=== PATIENT | female | born 1960 | race Caucasian/White ===

== ENCOUNTER → 2020-03-30 | Outpatient (CLI) | payer SELFPAY ==
[~2020-03-30] MED LIST: AMOXICILLIN125 MG; AUGMENTIN 875875 MG PO; DELTASONE20 MG PO; PREDNISONE20 MG PO; PRILOSEC OTC20 MG PO; SYMBICORT1 AE1 INH; VENTOLIN0.09 MG/AC INH; VITAMIN D5000 IU PO; VITAMIN D50000 I3 PO; ZITHROMAX Z PA250 MG PO
[2020-03-30 18:11] LABS: HEMATOCRIT 42.3 % (37.0-47.0); MEAN CELL VOLUME 85.8 fl (81.0-99.0); MEAN CORPUSCULAR HGB 29.6 pg (27.0-31.0); MEAN CORPUSCULAR HGB CONC 34.5 g/dl (33.0-37.0); RED BLOOD COUNT 4.93 10*6/uL (4.10-5.10); RED CELL DISTRI WIDTH 13.5 % (0-14.5); WHITE BLOOD COUNT 8.5 10*3/uL (4.8-10.8)
[2020-03-30 18:30] LABS: ALBUMIN 3.4 gm/dl (3.1-4.5); CREATININE 1.33 mg/dL (0.55-1.02); POTASSIUM 2.9 mmol/L (3.5-5.1); TOTAL PROTEIN 7.9 gm/dL (6.4-8.2)
[2020-03-30 18:37] LABS: THYROID STIM HORMONE (HS) 3.08 uIU/ml (0.358-4.75)
== END | disposition home or self-care (01) ==
LOC: LAB 17:46
PROVIDERS: Family Medicine
DX: I10 Essential (primary) hypertension (principal); R53.83 Other fatigue; R51 Headache; R77.9 Abnormality of plasma protein, unspecified

== ENCOUNTER → 2020-04-02 | Outpatient (CLI) | payer SELFPAY ==
[2020-04-02 15:14] LABS: URINE CHLORIDE, RANDOM < 10 mmol/L
== END | disposition home or self-care (01) ==
LOC: LAB 14:28
PROVIDERS: Family Medicine
DX: N18.2 Chronic kidney disease, stage 2 (mild) (principal); E87.1 Hypo-osmolality and hyponatremia; R80.9 Proteinuria, unspecified; E87.6 Hypokalemia

== ENCOUNTER → 2020-04-05 | Outpatient (CLI) | payer SELFPAY | END | disposition home or self-care (01) | LOC: LAB 08:43 | DX: R80.9 Proteinuria, unspecified (principal) ==

== ENCOUNTER → 2020-04-29 | Outpatient (CLI) | payer SELFPAY | END | disposition home or self-care (01) | LOC: LAB 07:40 | PROVIDERS: ATTEND Ophthalmology Retina Specialist | DX: H35.63 Retinal hemorrhage, bilateral (principal) ==

== ENCOUNTER → 2020-05-07 | Outpatient (CLI) | payer SELFPAY ==
[~2020-05-07] MED LIST changes: +ALDACTONE100 MG PO; +COREG12.5 M1 PO; +KEFLEX500 M1 PO; +POTASSIUM CHLO20 ME3 PO; +ZOFRAN4 MG PO
[2020-05-07 19:45] LABS: BASO # 0.1 10*3/uL (0.0-0.1); BASO % 0.6 % (0.0-1.0); EOS # 0.1 10*3/uL (0.0-0.4); EOS % 1.2 % (1.0-4.0); HEMATOCRIT 44.2 % (37.0-47.0); LYMPH # 1.7 10*3/uL (1.3-4.4); LYMPH % 15.8 % (27.0-41.0); MEAN CELL VOLUME 87.4 fl (81.0-99.0); MEAN CORPUSCULAR HGB 29.6 pg (27.0-31.0); MEAN CORPUSCULAR HGB CONC 33.9 g/dl (33.0-37.0); MEAN PLATELET VOLUME 9.2 fl (9.6-12.3); MONO # 0.8 10*3/uL (0.1-1.0); NEUT # 8.2 10*3/uL (2.3-7.9); NEUT % 74.7 % (47.0-73.0); PLATELET COUNT AUTOMATED 355 10*3/uL (130-400); RED BLOOD COUNT 5.06 10*6/uL (4.10-5.10); WHITE BLOOD COUNT 10.9 10*3/uL (4.8-10.8)
[2020-05-07 20:24] LABS: ALBUMIN 3.9 gm/dl (3.1-4.5); ALKALINE PHOSPHATASE 138 U/L (45-117); BUN 17 mg/dl (7-24); CHLORIDE 92 mmol/L (98-107); CREATININE 1.59 mg/dL (0.55-1.02); LIPASE 508 U/L (73-393); POTASSIUM 4.7 mmol/L (3.5-5.1); SGOT/AST 10 IU/L (3-35); SGPT/ALT 14 U/L (12-78); SODIUM 122 mmol/L (136-145); TOTAL PROTEIN 8.5 gm/dL (6.4-8.2)
== END | disposition home or self-care (01) ==
LOC: LAB 19:24
PROVIDERS: ATTEND Nurse Practitioner Family
DX: R10.9 Unspecified abdominal pain (principal); R11.0 Nausea; R63.4 Abnormal weight loss

== ENCOUNTER 2020-05-08 09:13 | Inpatient (IN) | payer SELFPAY ==
[~2020-05-08] VITALS: Ht 165.1 cm; Wt 57.7 kg
[~2020-05-08 09:13] MED LIST changes: -ALDACTONE100 MG PO; -COREG12.5 M1 PO; -KEFLEX500 M1 PO; -POTASSIUM CHLO20 ME3 PO; -ZOFRAN4 MG PO
[2020-05-08 09:18] VITALS: BP 158/58
[2020-05-08 09:40] LABS: BASO # 0.1 10*3/uL (0.0-0.1); BASO % 0.5 % (0.0-1.0); EOS # 0.1 10*3/uL (0.0-0.4); EOS % 1.2 % (1.0-4.0); HEMATOCRIT 44.1 % (37.0-47.0); LYMPH # 1.5 10*3/uL (1.3-4.4); LYMPH % 15.4 % (27.0-41.0); MEAN CELL VOLUME 87.3 fl (81.0-99.0); MEAN CORPUSCULAR HGB 29.7 pg (27.0-31.0); MEAN PLATELET VOLUME 9.3 fl (9.6-12.3); MONO # 0.6 10*3/uL (0.1-1.0); MONO % 6.3 % (3.0-9.0); NEUT # 7.4 10*3/uL (2.3-7.9); NEUT % 76.1 % (47.0-73.0); PLATELET COUNT AUTOMATED 359 10*3/uL (130-400); RED BLOOD COUNT 5.05 10*6/uL (4.10-5.10); WHITE BLOOD COUNT 9.7 10*3/uL (4.8-10.8)
[2020-05-08 09:51] LABS: ACT PARTIAL THROMBO TIME 32.2 SECONDS (20.0-32.1)
[2020-05-08 09:55] LABS: CREATININE 1.69 mg/dL (0.55-1.02); POTASSIUM 5.4 mmol/L (3.5-5.1); TOTAL PROTEIN 8.7 gm/dL (6.4-8.2)
[2020-05-08 10:34] VITALS: BP 156/61
[2020-05-08 10:43] LABS: BILIRUBIN NEGATIVE; BLOOD NEGATIVE (NEGATIVE); CLARITY CLEAR (CLEAR); COLOR YELLOW (YELLOW); GLUCOSE NEGATIVE; KETONE NEGATIVE; LEUKO ESTERASE NEGATIVE (NEGATIVE); NITRITE NEGATIVE (NEGATIVE); SPECIFIC GRAVITY < 1.005 (1.001-1.030); UROBILINOGEN 0.2 E.U./dl (0.0-1.0)
[2020-05-08 10:48] LABS: BACTERIA TRACE; COARSE GRANULAR CAST 0-2; EPITHELIAL CELLS 0-2
--- NOTE | 2020-05-08 10:55 | NUR ---
A 60, admitted to , under the services of MAMIE Gómez MD with a diagnosis of hyponatremia, abd pain, weight loss. Chief complaint is upset stomach, nausea. Patient arrived via bed from ER. Monitor applied. Initial assessment completed. Vital signs taken and recorded. MAMIE GÓMEZ MD notified of admission to the unit. Orders received. See assessment for past medical history, medications and allergies. Patient and/or family oriented to unit. [facility] visitation policy reviewed. Clothing/patient valuable form completed. CHARLENE YAO
[2020-05-08] MEDS ORDERED: COREG12.5 M1 PO (11:32)
[2020-05-08] MEDS ORDERED: KEFLEX500 M1 PO (11:33)
[2020-05-08] MEDS ORDERED: ZOFRAN4 MG PO (11:33)
[2020-05-08] MEDS ORDERED: POTASSIUM CHLO20 ME3 PO (11:33)
[2020-05-08] MEDS ORDERED: ALDACTONE100 MG PO (11:33)
[2020-05-08 12:00] VITALS: BP 152/57
--- NOTE | 2020-05-08 13:29 | NUR ---
PATIENT MEDICATED WITH PO TYLENOL PER ORDER FOR COMPLAINTS OF HEADACHE. WILL MONITOR FOR EFFECTIVENESS.
--- NOTE | 2020-05-08 13:45 | NUR ---
NOTIFIED OF CT RESULTS.
--- NOTE | 2020-05-08 14:27 | NUR ---
PER PATIENT, HEADACHE HAS IMPROVED. TYLENOL EFFECTIVE.
[2020-05-08 16:00] VITALS: BP 160/63
--- NOTE | 2020-05-08 20:15 | NUR ---
PT RESTING IN BED WITH HOB ELEVATED. RESP-EASY AND REGULAR. IVF INFUSING WITH NO PROBLEM. NO C/O AT THIS TIME. CALL LIGHT IN REACH. SEE SHIFT ASSESSMENT.
[2020-05-08 20:18] LABS: CREATININE 1.61 mg/dL (0.55-1.02)
[2020-05-08 20:19] LABS: POTASSIUM 4.4 mmol/L (3.5-5.1)
--- NOTE | 2020-05-08 20:58 | NUR ---
CALLED DR. ORTIZ MADE AWARE OF SODIUM LEVEL. ORDERS TAKEN AND REVIEWED.
[2020-05-09] VITALS: BP 133/55
--- NOTE | 2020-05-09 00:10 | NUR ---
PT RESTING IN BED WITH EYES CLOSED, AWAKENS EASILY. RESP-EASY AND REGULAR. NO C/O AT THIS TIME. CALL LIGHT IN REACH. SEE SHIFT ASSESSMENT.
--- NOTE | 2020-05-09 05:30 | NUR ---
PT SLEEPING IN BED ON LEFT SIDE. RESP-EASY AND REGULAR. IVF INFUSING WITH NO PROBLEM. CALL LIGHT IN REACH.
[2020-05-09 07:32] LABS: CREATININE 1.58 mg/dL (0.55-1.02); POTASSIUM 4.3 mmol/L (3.5-5.1)
[2020-05-09 08:00] LABS: LIPASE 477 U/L (73-393)
--- NOTE | 2020-05-09 08:00 | NUR ---
PATIENT REFUSED AM ASSESSMENT DUE TO BEING DISCHARGED.
--- NOTE | 2020-05-09 08:52 | NUR ---
Rn Stars in to talk to patient. Patient states lives at Home with . There are 4 steps in the home. Physician: Lex Feldman Pharmacy: [facility] Home health services: none Patient's level of ADLs: INDEPENDENT Patient has working utilities: yes DME: none Follow-up physician's appointment after d/c: Hospitalists nurse director Does patient want to access PORTAL?: no Discharge plan Home with , denies any needs.. AUGUST VILLALOBOS
--- NOTE | 2020-05-09 08:52 | NUR ---
Discharge instructions reviewed with patient/family. Patient receptive and verbalizes understanding. Follow-up care arranged. Written instructions given to patient/family. [employer] DISCONTINUED. [employer] SALESP[employer] REMOVED. PT AMBULATORY OFF FLOOR. CHARLENE YAO
== END 2020-05-09 09:00 | disposition home or self-care (01) | DRG 640 ==
LOC: ED 09:13 → EDHOLD 10:10 → 4E 10:28
PROVIDERS: Nurse Practitioner Family; ADMIT Internal Medicine; ATTEND Internal Medicine
DX: E87.1 Hypo-osmolality and hyponatremia (principal); K85.90 Acute pancreatitis without necrosis or infection, unspecified; I10 Essential (primary) hypertension; E87.5 Hyperkalemia; R63.4 Abnormal weight loss; Z83.3 Family history of diabetes mellitus; Z82.49 Family history of ischemic heart disease and other diseases of the circulatory system; Z79.899 Other long term (current) drug therapy

== ENCOUNTER → 2020-06-30 | Outpatient (CLI) | payer SELFPAY ==
[~2020-06-30] MED LIST changes: +ALDACTONE100 MG PO; +COREG12.5 M1 PO; +KEFLEX500 M1 PO; +POTASSIUM CHLO20 ME3 PO; +ZOFRAN4 MG PO
[2020-06-30 08:02] LABS: BILIRUBIN Negative (Negative); BLOOD Negative (Negative); CLARITY Clear (Clear); COLOR Yellow (Yellow); GLUCOSE Negative (Negative); KETONE Negative (Negative); LEUKO ESTERASE Negative (Negative); NITRITE Negative (Negative); PH 5.5 (4.5-8.0); SPECIFIC GRAVITY 1.015 (1.001-1.030); UROBILINOGEN 0.2 E.U./dl (0.0-1.0)
[2020-06-30 08:11] LABS: URINE CREATININE RANDOM 93.1 mg/dL
[2020-06-30 08:21] LABS: ALBUMIN 3.3 gm/dl (3.1-4.5); BUN 9 mg/dl (7-24); CHLORIDE 104 mmol/L (98-107); CREATININE 1.07 mg/dL (0.55-1.02); POTASSIUM 3.8 mmol/L (3.5-5.1); SODIUM 140 mmol/L (136-145)
[2020-06-30 09:34] LABS: RBC 0-2 rbc/hpf (0-2)
== END | disposition home or self-care (01) ==
LOC: US 06:45 → LAB 06:45 → US 07:30
PROVIDERS: ATTEND Internal Medicine Nephrology
DX: N26.1 Atrophy of kidney (terminal) (principal); R80.9 Proteinuria, unspecified; E87.1 Hypo-osmolality and hyponatremia

== ENCOUNTER → 2024-01-24 | Outpatient (CLI) | payer MEDICARE, OTHER | END | disposition home or self-care (01) | LOC: CT 13:58 | PROVIDERS: ATTEND Internal Medicine Hospice and Palliative Medicine | DX: R91.1 Solitary pulmonary nodule (principal) ==

== ENCOUNTER → 2024-08-12 | Outpatient (CLI) | payer MEDICARE, OTHER ==
[2024-08-12 10:31] LABS: BASO # 0.1 10*3/uL (0.0-0.1); BASO % 0.8 % (0.0-1.0); EOS # 0.2 10*3/uL (0.0-0.4); EOS % 2.2 % (1.0-4.0); HEMATOCRIT 47.1 % (37.0-47.0); MEAN CELL VOLUME 93.8 fl (81.0-99.0); MEAN CORPUSCULAR HGB 31.5 pg (27.0-31.0); MEAN CORPUSCULAR HGB CONC 33.5 g/dl (33.0-37.0); MEAN PLATELET VOLUME 8.9 fl (9.6-12.3); MONO # 0.6 10*3/uL (0.1-1.0); MONO % 6.2 % (3.0-9.0); NEUT # 7.9 10*3/uL (2.3-7.9); NEUT % 76.5 % (47.0-73.0); PLATELET COUNT AUTOMATED 335 10*3/uL (130-400); RED BLOOD COUNT 5.02 10*6/uL (4.10-5.10); WHITE BLOOD COUNT 10.3 10*3/uL (4.8-10.8)
[2024-08-12 11:15] LABS: ALKALINE PHOSPHATASE 119 U/L (46-116); BUN 17 mg/dl (9-23); CHLORIDE 105 mmol/L (98-107); POTASSIUM 4.1 mmol/L (3.4-5.1); SGPT/ALT 12 U/L (5-49); TOTAL PROTEIN 7.6 gm/dL (6.0-8.0)
[2024-08-13 14:07] LABS: CCP ANTIBODIES IGG/IGA 7 units (0-19)
== END | disposition home or self-care (01) ==
LOC: LAB 10:09
PROVIDERS: ATTEND Student in an Organized Health Care Education/Training Program
DX: R76.8 Other specified abnormal immunological findings in serum (principal); R63.4 Abnormal weight loss; R79.0 Abnormal level of blood mineral

== ENCOUNTER → 2024-12-20 | Outpatient (CLI) | payer MEDICARE, OTHER ==
[~2024-12-20] MED LIST changes: +AMLODIPINE BESY10 MG PO; +BREZTRI AEROS10.7 GM INH; +DOXYCYCLINE HY100 M3 PO; +HYDROCODONE-AC1 EAC1 PO; +Ipratropium Brom3 ML INH; +MUCUS RELIEF E600 MG PO; +NEBULIZER INH; +NORVASC5 MG PO; +PREDNISONE10 MG PO; +VITAMIN B COMP1 EAC1 PO; +VITAMIN D350 MC2 PO; +WOMEN'S 50 PLU1 EACH PO
[2024-12-20 12:26] LABS: BASO # 0.1 10*3/uL (0.0-0.1); BASO % 0.9 % (0.0-1.0); EOS # 0.2 10*3/uL (0.0-0.4); EOS % 2.2 % (1.0-4.0); HEMATOCRIT 39.3 % (37.0-47.0); MEAN CELL VOLUME 95.4 fl (81.0-99.0); MEAN CORPUSCULAR HGB 31.3 pg (27.0-31.0); MEAN CORPUSCULAR HGB CONC 32.8 g/dl (33.0-37.0); MEAN PLATELET VOLUME 8.8 fl (9.6-12.3); MONO # 0.5 10*3/uL (0.1-1.0); MONO % 5.2 % (3.0-9.0); NEUT # 8.1 10*3/uL (2.3-7.9); PLATELET COUNT AUTOMATED 360 10*3/uL (130-400); RED BLOOD COUNT 4.12 10*6/uL (4.10-5.10); RED CELL DISTRI WIDTH 14.9 % (0-14.5); WHITE BLOOD COUNT 10.4 10*3/uL (4.8-10.8)
[2024-12-20 12:30] LABS: BILIRUBIN Negative (Negative); BLOOD Negative (Negative); CLARITY Clear (Clear); COLOR Yellow (Yellow); GLUCOSE Negative (Negative); KETONE Negative (Negative); LEUKO ESTERASE Trace (Negative); NITRITE Negative (Negative); PH 6.5 (4.5-8.0); SPECIFIC GRAVITY <= 1.005 (1.001-1.030); UROBILINOGEN 0.2 E.U./dl (0.0-1.0)
[2024-12-20 12:58] LABS: ALKALINE PHOSPHATASE 120 U/L (46-116); BUN 14 mg/dl (9-23); CHLORIDE 102 mmol/L (98-107); POTASSIUM 3.3 mmol/L (3.4-5.1); SGPT/ALT 11 U/L (5-49)
[2024-12-21 13:07] LABS: CCP ANTIBODIES IGG/IGA 11 units (0-19)
== END | disposition home or self-care (01) ==
LOC: LAB 12:00
PROVIDERS: ATTEND Internal Medicine Rheumatology
DX: R76.8 Other specified abnormal immunological findings in serum (principal)